=== PATIENT | female | born 1960 | race Caucasian/White ===

== ENCOUNTER → 2017-05-01 | Outpatient (CLI) | payer BC | END | disposition home or self-care (01) | LOC: KCIC MAMMO 08:06 | PROVIDERS: ATTEND Family Medicine | DX: Z12.31 Encounter for screening mammogram for malignant neoplasm of breast (principal) | CPT/HCPCS: G0202; 77067 ==

== ENCOUNTER → 2017-08-13 | Outpatient (CLI) | payer BC ==
--- NOTE | 2017-08-13 11:10 | KCIC ---
CHEST PA LATERAL History: Bronchitis with bronchospasm, productive cough, back pain, smoker 40 years Comparison: None. Findings: There is no infiltrate, pneumothorax, or effusion. The cardiac silhouette is within normal limits in size. Defined opaque nodular opacity in the region of the right middle lobe medially is most likely calcified. There is some atherosclerotic calcification near aortic arch. Impression: 1. There is no radiographic evidence of acute cardiopulmonary disease. 2. CT would be more sensitive for detection of noncalcified lung nodule. There is likely granuloma of the medial right middle lobe. Electronically signed by: Jono Dubois MD (08/13/2017 11:07 AM) [id number]
== END | disposition home or self-care (01) ==
LOC: KCIC 10:31
PROVIDERS: ATTEND Family Medicine
DX: J40 Bronchitis, not specified as acute or chronic (principal)
CPT/HCPCS: 71020

== ENCOUNTER → 2018-01-15 | Outpatient (CLI) | payer BC | END | disposition home or self-care (01) | LOC: KCIC 11:34 | DX: J84.10 Pulmonary fibrosis, unspecified (principal); E03.9 Hypothyroidism, unspecified; R91.1 Solitary pulmonary nodule; Z87.891 Personal history of nicotine dependence | CPT/HCPCS: 71046 ==